=== PATIENT | male | born 1940 | race Caucasian/White ===

== ENCOUNTER → 2016-12-11 | Outpatient (CLI) | payer SELFPAY ==
--- NOTE | 2016-12-11 13:58 | CT ---
HISTORY: Screening, family history Cardiac calcium scoring Technique: Multiple axial images of the chest were obtained on a [address] from the aortic arch to the base of the heart with noncontrast prospective gating. AEC was utilized. Findings: A total calcium score of 1846 is observed. The score results in high likelihood of coronary events given the age and sex matched cohort analysis. Extensive atherosclerotic plaque is present with at least 1 significant narrowing likely. Surrounding soft tissues are unremarkable. Thoracic spondylosis is noted. IMPRESSION: Elevated Coronary calcium score. Reported By:
== END ==
LOC: RAD 09:59
PROVIDERS: ATTEND Internal Medicine Cardiovascular Disease
DX: Z13.6 Encounter for screening for cardiovascular disorders (principal)